=== PATIENT | female | born 1960 | race African-American/Black ===

== ENCOUNTER 2024-05-09 14:21 | Outpatient (CLI) | payer OTHER | END 2024-05-09 14:22 | disposition home or self-care (01) | LOC: BICULT 14:21 | DX: E01.0 Iodine-deficiency related diffuse (endemic) goiter (principal) | CPT/HCPCS: 76536 ==

== ENCOUNTER 2024-10-26 16:01 | Outpatient (CLI) | payer OTHER | END 2024-10-26 16:02 | disposition home or self-care (01) | LOC: ULT 16:01 | PROVIDERS: ATTEND Internal Medicine | DX: E04.2 Nontoxic multinodular goiter (principal) | CPT/HCPCS: 76536 ==